=== PATIENT | female | born 1945 | race Caucasian/White ===

== ENCOUNTER 2017-05-01 21:39 | Inpatient (IN) | payer OTHER ==
[~2017-05-01] VITALS: Ht 177.8 cm; Wt 64.0 kg
--- NOTE | 2017-05-01 22:37 | RADRPT ---
PROCEDURE: XR Wrist and Scaphoid. CLINICAL INDICATION: 71 years of age, female. Fall. Pain.. TECHNIQUE: Four views of the left wrist and scaphoid. COMPARISON: None available. FINDINGS: There is a mildly impacted acute fracture of the distal radius that involves the distal radioulnar j oint but does not involve the radiocarpal joint. There is minimal angulation apex-anterior with neut ral alignment of the distal radial articular surface. Normal alignment. Neutral ulnar variance. Bones are osteopenic. Joint spaces are preserved. There is a subchondral cyst in the lunate that likely represents a geode or intraosseous ganglion cyst. There is soft tissue swelling at the wrist. IMPRESSION: 1. Acute fracture of the distal radius that involves the distal radioulnar joint but does not invol ve the radiocarpal joint with mild impaction and minimal angulation. 2. Osteopenia. 3. Subchondral cyst in the lunate likely represents a geode or intraosseous ganglion cyst. RPTAT: HCTS Physician Radha Date Time Electronically viewed and signed by Physician Radha on 05/01/2017 22:36 /
[2017-05-01] MEDS ORDERED: LEVO88TA3 PO (22:47)
[2017-05-01] MEDS ORDERED: IBUP200C PO (22:47)
[2017-05-01] MEDS ORDERED: FLUO20CA22 PO (22:47)
[2017-05-01] MEDS ORDERED: ESOM20CA PO (22:47)
[2017-05-01] MEDS ORDERED: GEMF600T60 PO (22:47)
[2017-05-01] MEDS ORDERED: ASPI-664 PO (22:47)
[2017-05-01] MEDS ORDERED: LORA-444 PO (22:47)
--- NOTE | 2017-05-01 23:21 | RADRPT ---
PROCEDURE: XR Hip. CLINICAL INDICATION: Status post fall with left hip pain TECHNIQUE: AP and frog lateral views of the left hip were performed. COMPARISON: None. FINDINGS: Abnormal jagged lucency coursing obliquely through the intertrochanteric region is present consisten t with an acute fracture. No displacement of the fracture fragments is demonstrated. The femoral hea d is normal in contour and the joint space preserved. The soft tissues are unremarkable. . RPTAT:HJJR IMPRESSION: Acute, closed, nondisplaced extracapsular intertrochanteric left femoral fracture. Physician Jacklyn Date Time Electronically viewed and signed by Physician Jacklyn on 05/01/2017 23:20 /
--- NOTE | 2017-05-01 23:22 | RADRPT ---
PROCEDURE: XR Pelvis. CLINICAL INDICATION: Trauma right status post fall TECHNIQUE: Single AP view of the pelvis. COMPARISON: Left hip series 05/01/2017 FINDINGS: A nondisplaced intertrochanteric fracture of the left femur is better visualized on the dedicated hi p images. There is no evidence of acute pelvic bone fracture. There are no arthritic, neoplastic or inflammatory changes. The osseous mineralization is normal. The sacroiliac joints and pubic symphysis are normal. RPTAT:HJJR IMPRESSION: 1. No evidence of acute pelvic bone fracture. 2. For further information regarding the nondisplaced intertrochanteric fracture of the left hip, p lease refer to the separate report. Physician Jacklyn Date Time Electronically viewed and signed by Physician Jacklyn on 05/01/2017 23:21 JR/
--- NOTE | 2017-05-01 23:28 | RADRPT ---
PROCEDURE: XR Chest. CLINICAL INDICATION: Trauma TECHNIQUE: AP Portable chest. COMPARISON: No pertinent prior examinations were submitted for comparison. FINDINGS: The cardiomediastinal silhouette is normal. The lungs are clear. The osseous structures are unrema rkable. IMPRESSION: No acute findings. RPTAT: HIKT .Luigi Ly MD, MD Date Time Electronically viewed and signed by .Luigi Ly MD, MD on 05/01/2017 23:28 .T/
--- NOTE | 2017-05-01 23:38 | ERA ---
ER Documentation Chief Complaint Date/Time DATE: 05/01/17 TIME: 23:31 Chief Complaint left hip pain s/p triped on raised sidewalk, GLF. no LOC HPI This is a 71-year-old female with a past medical history of depression, anxiety , hypothyroidism, hyperlipidemia who is presenting after a mechanical fall. The patient tripped on uneven pavement and fell to her left into grasp. She fell on an outstretched hand and also fell and landed on her left hip. She was not ambulatory at the scene secondary to pain. She has no focal deficits. Her sensation is intact distal to the injuries. She is able to move her fingers without issue. She is able to move her ankle and toes without issue. She has normal pulses. Her extremities do not feel cold. The patient does not endorse any other injury. She did not hit her head. She denies headache or neck pain. She denies any back pain. She denies chest pain or trouble breathing. She denies abdominal pain. She is not incontinent of urine or stool. She has no saddle anesthesia. ROS All systems reviewed and are negative except as per history of present illness. Medications Home Meds Reported Medications Fluoxetine Hcl* (Fluoxetine Hcl*) 20 Mg Capsule, 20 MG PO DAILY, CAP 05/01/17 Esomeprazole Mag Trihydrate (Nexium) 20 Mg Capsule.dr, 20 MG PO BID, #30 CAP 05/01/17 Ibuprofen* (Ibuprofen*) 200 Mg Capsule, 200 MG PO Q6 for PAIN, CAP 05/01/17 Gemfibrozil* (Gemfibrozil*) 600 Mg Tablet, 600 MG PO BID, TAB 05/01/17 Levothyroxine Sodium* (Levothyroxine Sodium*) 88 Mcg Tablet, 88 MCG PO BEFORE BREAKFAST, #30 TAB 05/01/17 Lorazepam* (Ativan*) 2 Mg Tablet, 2 MG PO DAILY Y for ANXIETY, #30 TAB 05/01/17 Aspirin* (Aspirin* EC) 81 Mg Tablet.dr, 81 MG PO DAILY, TAB 05/01/17 Allergies Allergies: Coded Allergies: Penicillins (Verified Allergy, Unknown, 05/01/17) PMhx/Soc Hx Miscellaneous Medical Probl: Yes (Anxiety, depression) Hx Alcohol Use: No (Occasional) Hx Substance Use: No Hx Tobacco Use: No Smoking Status: Never smoker FmHx Family History: No diabetes Physical Exam Vitals Vital Signs Date Time Temp Pulse Resp B/P Pulse Ox O2 Delivery O2 Flow Rate FiO2 05/01/17 22:34 98.7 75 16 135/63 98 Room Air 05/01/17 21:46 98.0 78 20 133/64 97 Physical Exam Const: NAD, Well developed, Well nourished Head: Atraumatic Eyes: Normal Conjunctiva ENT: Normal External Ears, Nose and Mouth. Neck: Full range of motion. ~ No meningismus. Resp: Clear to auscultation bilaterally Cardio: Regular rate and rhythm, no murmurs Abd: Soft, non tender, non distended. Normal bowel sounds Skin: No petechiae or rashes Back: No midline or flank tenderness Ext: No cyanosis, or edema, limited ROM at left wrist and left hip 2/2 pain, normal pulses, no erythema, no induration, no edema Neur: Awake and alert, Normal sensation, Normal strength, normal coordination Psych: Normal Mood and Affect Result Diagram: 05/02/17705/02/177 Results 24 hrs Laboratory Tests Test 05/02/17 00:08 White Blood Count 10.110^3/ul Red Blood Count 3.7410^6/ul Hemoglobin 11.0g/dl Hematocrit 34.0% Mean Corpuscular Volume 90.9fl Mean Corpuscular Hemoglobin 29.4pg Mean Corpuscular Hemoglobin Concent 32.4g/dl Red Cell Distribution Width 14.1% Platelet Count 01832^3/UL Mean Platelet Volume 8.9fl Neutrophils % 78.2% Lymphocytes % 14.7% Monocytes % 5.8% Eosinophils % 0.6% Basophils % 0.3% Nucleated Red Blood Cells % 0.0/100WBC Neutrophils # 7.910^3/ul Lymphocytes # 1.510^3/ul Monocytes # 0.610^3/ul Eosinophils # 0.110^3/ul Basophils # 0.010^3/ul Nucleated Red Blood Cells # 0.010^3/ul Prothrombin Time 12.6Sec Prothrombin Time Ratio 1.0 INR International Normalized Ratio 0.94 Activated Partial Thromboplast Time 25.8Sec Sodium Level 143mmol/L Potassium Level 3.8mmol/L Chloride Level 108mmol/L Carbon Dioxide Level 28mmol/L Anion Gap 11 Blood Urea Nitrogen 16mg/dl Creatinine 0.66mg/dl Glucose Level 105mg/dl Calcium Level 9.8mg/dl Current Medications Medications (Trade) Dose Ordered Sig/Boris Route PRN Reason Start Time Stop Time Status Last Admin Dose Admin Ondansetron HCl (Zofran Inj) 4 mg BRIDGE ORDER PRN IV NAUSEA AND/OR VOMITING 05/02/17 00:00 05/02/17 23:59 Acetaminophen (Tylenol Tab) 650 mg ER BRIDGE PRN PO MILD PAIN/FEVER 05/02/17 00:00 05/02/17 23:59 Procedures/MDM MDM Patient's presentation warrants further investigation. She presents after mechanical fall. I do not have any suspicion of a syncopal event given her history. I am concerned of fractures to the left wrist and left hip. X-ray imaging will be obtained. A CT of the left hip may be warranted for surgical evaluation if there is a fracture. Preop blood work may be warranted. LABS The patient's blood work was obtained and reviewed. The patient seemed shows no leukocytosis or left shift. The patient is afebrile, and I do not suspect a systemic infection. The patient is mild anemic today, but this does not require immediate treatment. I do not suspect hemorrhage as the injury sites. The patient's platelet count is unremarkable. The patient's BMP shows no signs of metabolic or electrolyte abnormality. The patient has normal renal function testing. INR is unremarkable. Type & screen was also sent off. EKG EKG read by me: Rate/Rhythm: Regular rate and rhythm at a rate of 67 Intervals: Normal Paradis: Normal Impression: No evidence of ischemia or arrhythmia IMAGING CT L HIP IMPRESSION: 1. Confirmation of the acute, closed, nondisplaced obliquely oriented extracapsular intertrochanteric fracture of the left femur seen on the earlier x -ray. 2. No evidence of distraction of the fracture fragments. 3. The soft tissues are unremarkable without evidence of hematoma. Electronically viewed and signed by Physician Jacklyn on 05/01/2017 23:41 TREATMENT/DISPOSITION The patient has a left wrist fracture. This will be splinted in the emergency department. It does not require reduction. A volar splint was placed under my direct supervision and the patient was neurovascularly intact after application. The patient also has a left extra-articular intertrochanteric fracture. Orthopedics was consulted and they felt that the patient will likely require surgical intervention. Preop testing was completed as described above. The patient will be admitted to the panel service as directed by their insurance. Dr. Cotto accepted the patient. Departure Diagnosis: Primary Impression: Fall Qualified Code: W19.XXXA - Fall, initial encounter Additional Impressions: Closed intertrochanteric fracture of left femur Qualified Code: S72.145A - Closed nondisplaced intertrochanteric fracture of left femur, initial encounter Fracture of left distal radius Qualified Code: S52.552A - Other closed extra-articular fracture of distal end of left radius, initial encounter Condition: Stable SHEN GARCIA MD May 01, 2017 23:38
--- NOTE | 2017-05-01 23:41 | RADRPT ---
PROCEDURE: CT of the lower extremity without contrast CLINICAL INDICATION: Fall. Left hip pain. TECHNIQUE: CT of the left lower extremity is performed from the mid iliac bone through the mid fem ur at 2.5 mm sections without intravenous contrast media. Coronal and sagittal reformatted images a re submitted. One or more of the following dose reduction techniques were used: Automated exposure c ontrol, adjustment of the mA and/or kV according to patient size, use of iterative reconstruction te chnique. CTDI = 18.34 mGy; DLP = 582.43 mGy-cm COMPARISON: X-ray 05/01/2017 FINDINGS: Osseous structures: The visualized left arpan pelvis is unremarkable. In particular the acetabulum i s normal. Corresponding to the x-ray abnormality is a jagged hairline lucency coursing obliquely thr ough the intertrochanteric region consistent with an acute, closed, nondisplaced fracture. There is no separate lesser trochanter fracture. The femoral neck and head are intact. Soft tissues: No soft tissue hematoma or joint effusion is present. The musculature is within rosa l limits. The visualized pelvis demonstrates diverticular disease of the colon and findings of prior hysterectomy. RPTAT:HJJR IMPRESSION: 1. Confirmation of the acute, closed, nondisplaced obliquely oriented extracapsular intertrochanteri c fracture of the left femur seen on the earlier x-ray. 2. No evidence of distraction of the fracture fragments. 3. The soft tissues are unremarkable without evidence of hematoma. Physician Jacklyn Date Time Electronically viewed and signed by Physician Jacklyn on 05/01/2017 23:41 /
[2017-05-02 00:22] LABS: BASOPHILS % 0.3 % (0.0-2.0); EOSINOPHILS # 0.1 10^3/ul (0.0-0.5); EOSINOPHILS % 0.6 % (0.0-7.0); LYMPHOCYTES # 1.5 10^3/ul (0.8-2.9); LYMPHOCYTES % 14.7 % (15.0-51.0); MEAN CORPUSCULAR HEMOGLOBIN 29.4 pg (29.0-33.0); MEAN CORPUSCULAR HGB CONC 32.4 g/dl (32.0-37.0); MEAN CORPUSCULAR VOLUME 90.9 fl (82.0-101.0); MEAN PLATELET VOLUME 8.9 fl (7.4-10.4); MONOCYTE # 0.6 10^3/ul (0.3-0.9); MONOCYTES % 5.8 % (0.0-11.0); NEUTROPHIL # 7.9 10^3/ul (1.6-7.5); NEUTROPHILS % 78.2 % (39.0-77.0); PLATELET COUNT 237 10^3/UL (140-415); RED BLOOD COUNT 3.74 10^6/ul (4.20-5.40); RED CELL DISTRIBUTION WIDTH 14.1 % (11.5-14.5); WHITE BLOOD COUNT 10.1 10^3/ul (4.8-10.8)
[2017-05-02 00:38] LABS: INR 0.94; PROTIME 12.6 Sec (12.2-14.2)
[2017-05-02 00:39] LABS: PARTIAL THROMBOPLASTIN TIME 25.8 Sec (25.0-35.0)
[2017-05-02 00:43] LABS: CALCIUM 9.8 mg/dl (8.4-10.2); CREATININE 0.66 mg/dl (0.44-1.00); POTASSIUM 3.8 mmol/L (3.5-5.1)
[2017-05-02] MEDS ORDERED: SOD CHLORIDE 0.9% 1,000 ML IV SCH (01:41)
[2017-05-02] MEDS ORDERED: ACETAMINOPHEN 325 MG TAB PO PRN ×2 (02:00)
[2017-05-02] MEDS ORDERED: NACL 0.9% 3 ML SYG IV SCH (02:00)
[2017-05-02] MEDS ORDERED: DOCUSATE SODIUM 100 MG CAP PO PRN (02:00)
[2017-05-02] MEDS ORDERED: ONDANSETRON 4 MG INJ IV PRN ×2 (02:00)
[2017-05-02] MEDS ORDERED: BISACODYL (EC) 5 MG TAB PO PRN (02:00)
[2017-05-02] MEDS ORDERED: morphine 2 MG INJ IV ONE ×2 (04:00→12:00)
[2017-05-02 05:04] VITALS: TEMP 98.6
[2017-05-02 05:46] VITALS: Ht 177.8 cm; Wt 64.0 kg
[2017-05-02 05:47] VITALS: BP 135/63; PULSE 77; RESP 20
[2017-05-02] MEDS ORDERED: PANTOPRAZOLE 40 MG INJ IV SCH (06:00)
[2017-05-02] MEDS ORDERED: LORAZEPAM 1 MG TAB PO PRN (06:30)
--- NOTE | 2017-05-02 07:02 | HP ---
Date/Time of Note Date/Time of Note DATE: 05/02/17 TIME: 06:53 Assessment/Plan VTE Prophylaxis VTE Prophylaxis Intervention: SCD's Lines/Catheters IV Catheter Type (from Nrsg): Peripheral IV Urinary Cath still in place: Yes Reason Cath still needed: other (indicate) (immobilization secondary to fx) Assessment/Plan Chief Complaint/Hosp Course This is a 71-year-old female being admitted to the [facility] floor for: #1 Left femur fracture: CAT scan shows acute, closed, nondisplaced obliquely oriented extracapsular intertrochanteric fracture of the left femur. The current time will provide pain control but IV narcotics. Keep the patient immobilized at this time. SCDs. Keep the patient n.p.o. IV fluid hydration. Orthopedic surgery was consulted via the ED and will see the patient's morning. will obtain an ekg for the AM. #2 left wrist fracture: Acute fracture of the distal radius that involves the distal radioulnar joint but does not involve the radiocarpal joint with mild impaction and minimal angulation. Left upper extremity is in a cast/splint at this time. Keep it immobilized at this time. Orthopedic surgery consulted via the ED. IV narcotic for pain control. #3 hypothyroidism: Continue Synthroid dose will check TSH level #4 hypertension: Continue to monitor and resume home medications as indicated. #5 anxiety: Patient is on high-dose of lorazepam daily consisting of 2 mg in the morning 2 mg in the afternoon and 4 mg at night. Will continue to Amy patient's current dosage as holding this may result in withdrawal symptoms/ seizures. Resume fluoxetine #6 hyperlipidemia: We will resume cholesterol medication as indicated #7 DVT GI prophylaxis: SCDs, acid al Further treatment strategy will be implemented as per the clinical course Problems: HPI/ROS Admit Date/Time Admit Date/Time May 02, 2017 at 00:00 Hx of Present Illness cc: mechanical fall This is a 71-year-old female with a past medical history of depression, anxiety , hypothyroidism, hyperlipidemia who is presenting after a mechanical fall. The patient tripped on uneven pavement and fell to her left into grasp. She fell on an outstretched hand and also fell and landed on her left hip. She was not ambulatory at the scene secondary to pain. She has no focal deficits. Her sensation is intact distal to the injuries. She is able to move her fingers without issue. She is able to move her ankle and toes without issue. She has normal pulses. Her extremities do not feel cold. The patient does not endorse any other injury. She did not hit her head. She denies headache or neck pain. She denies any back pain. She denies chest pain or trouble breathing. She denies abdominal pain. She is not incontinent of urine or stool. She has no saddle anesthesia. Of note patient reports she takes total of 8mg of lorazepam daily secondary to her high anxiety as she was a a victim of the 04/21 attacks. allergies: pcn ROS Const: As per HPI Eyes : No pain discharge or redness or change in visual acuity ENT: No pain, sore throat, congestion, congestion, dysphagia or discharge Respiratory: No shortness of breath, cough, sputum, wheezing, or pleuritic pain Cardiovascular: No chest pain, palpitation, PND, or edema GI : no change in appetite, abdominal pain, nausea, vomiting, diarrhea, constipation, or change in the color his stool Genitourinary: No dysuria, hematuria, flank pain , discharge or CVA tenderness Musculoskeletal: As per HPI Skin: No rash, bruising or hives Neuro: No headache, dizziness, syncope, seizure, focal weakness Endocrine: No polyuria, polydipsia, temperature intolerance Psych: No hallucination, depression, anxiety or suicidal ideation PMH/Family/Social Past Medical History Hypertension, hyperlipidemia, hypothyroidism, anxiety Past Surgical History Left shoulder surgery, abdominal surgery Family History Significant Family History: cancer Social History Alcohol Use: none Smoking Status: Never smoker Drug Use: none Exam/Review of Systems Vital Signs Vitals Vital Signs Date Time Temp Pulse Resp B/P Pulse Ox O2 Delivery O2 Flow Rate FiO2 05/02/17 05:47 98.1 77 20 135/63 96 Room Air Exam Exam General: Patient is lying in bed in mild distress from pain HEENT: Atraumatic, normocephalic. The pupils are equal, round and reactive. Extraocular motor are intact Neck: Supple with full range of motion. No rigidity or meningismus Chest: Nontender Lungs: Clear to auscultation bilaterally no crackles rales or wheezing Heart: Normal S1-S2, Regular rhythm and rate. No murmur, S3, or S4 Abdomen: Soft , nontender, nondistended , bowel sounds are present. No guarding no rebound tenderness , No masses or organomegaly. No costovertebral temporal angle mass Extremities: Left upper extremity in cast/wrap, left lower extremity pain to palpation around the left femur. Range of motion not assessed secondary to patient's pain Neurologic: Normal mental status, speech normal, cranial nerves II through XII are intact, motor and sensory are intact, no focal weakness Additional Comments PROCEDURE: CT of the lower extremity without contrast CLINICAL INDICATION: Fall. Left hip pain. TECHNIQUE: CT of the left lower extremity is performed from the mid iliac bone through the mid femur at 2.5 mm sections without intravenous contrast media. Coronal and sagittal reformatted images are submitted. One or more of the following dose reduction techniques were used: Automated exposure control, adjustment of the mA and/or kV according to patient size, use of iterative reconstruction technique. CTDI = 18.34 mGy; DLP = 582.43 mGy-cm COMPARISON: X-ray 05/01/2017 FINDINGS: Osseous structures: The visualized left arpan pelvis is unremarkable. In particular the acetabulum is normal. Corresponding to the x-ray abnormality is a jagged hairline lucency coursing obliquely through the intertrochanteric region consistent with an acute, closed, nondisplaced fracture. There is no separate lesser trochanter fracture. The femoral neck and head are intact. Soft tissues: No soft tissue hematoma or joint effusion is present. The musculature is within normal limits. The visualized pelvis demonstrates diverticular disease of the colon and findings of prior hysterectomy. RPTAT:HJJR IMPRESSION: 1. Confirmation of the acute, closed, nondisplaced obliquely oriented extracapsular intertrochanteric fracture of the left femur seen on the earlier x -ray. 2. No evidence of distraction of the fracture fragments. 3. The soft tissues are unremarkable without evidence of hematoma. Physician Jacklyn Date Time Electronically viewed and signed by Physician Jacklyn on 05/01/2017 23:41 JR/ CC: SHEN GARCIA MD PROCEDURE: XR Wrist and Scaphoid. CLINICAL INDICATION: 71 years of age, female. Fall. Pain.. TECHNIQUE: Four views of the left wrist and scaphoid. COMPARISON: None available. FINDINGS: There is a mildly impacted acute fracture of the distal radius that involves the distal radioulnar joint but does not involve the radiocarpal joint. There is minimal angulation apex-anterior with neutral alignment of the distal radial articular surface. Normal alignment. Neutral ulnar variance. Bones are osteopenic. Joint spaces are preserved. There is a subchondral cyst in the lunate that likely represents a geode or intraosseous ganglion cyst. There is soft tissue swelling at the wrist. IMPRESSION: 1. Acute fracture of the distal radius that involves the distal radioulnar joint but does not involve the radiocarpal joint with mild impaction and minimal angulation. 2. Osteopenia. 3. Subchondral cyst in the lunate likely represents a geode or intraosseous ganglion cyst. RPTAT: HCTS Alyse Solano Physician Date Time Electronically viewed and signed by Physician Radha on 05/01/2017 22: 36 CS/ CC: SHEN GARCIA MD PROCEDURE: XR Hip. CLINICAL INDICATION: Status post fall with left hip pain TECHNIQUE: AP and frog lateral views of the left hip were performed. COMPARISON: None. FINDINGS: Abnormal jagged lucency coursing obliquely through the intertrochanteric region is present consistent with an acute fracture. No displacement of the fracture fragments is demonstrated. The femoral head is normal in contour and the joint space preserved. The soft tissues are unremarkable. . RPTAT:HJJR IMPRESSION: Acute, closed, nondisplaced extracapsular intertrochanteric left femoral fracture. Physician Jacklyn Date Time Electronically viewed and signed by Physician Jacklyn on 05/01/2017 23:20 JR/ CC: SHEN GARCIA MD PROCEDURE: XR Pelvis. CLINICAL INDICATION: Trauma right status post fall TECHNIQUE: Single AP view of the pelvis. COMPARISON: Left hip series 05/01/2017 FINDINGS: A nondisplaced intertrochanteric fracture of the left femur is better visualized on the dedicated hip images. There is no evidence of acute pelvic bone fracture. There are no arthritic, neoplastic or inflammatory changes. The osseous mineralization is normal. The sacroiliac joints and pubic symphysis are normal. RPTAT:HJJR IMPRESSION: 1. No evidence of acute pelvic bone fracture. 2. For further information regarding the nondisplaced intertrochanteric fracture of the left hip, please refer to the separate report. Physician Jacklyn Date Time Electronically viewed and signed by Physician Jacklyn on 05/01/2017 23:21 JR/ CC: SHEN GARCIA MD PROCEDURE: XR Chest. CLINICAL INDICATION: Trauma TECHNIQUE: AP Portable chest. COMPARISON: No pertinent prior examinations were submitted for comparison. FINDINGS: The cardiomediastinal silhouette is normal. The lungs are clear. The osseous structures are unremarkable. IMPRESSION: No acute findings. RPTAT: HIKT .Luigi Ly MD, MD Date Time Electronically viewed and signed by .Luigi Ly MD, MD on 05/01/2017 23:28 .T/ CC: SHEN GARCIA MD Labs Result Diagram: 05/02/17705/02/177 Medications Medications Current Medications Sodium Chloride (NS) 1,000 ml @ 70 mls/hr [id number] IV Last administered on 05/02t 01:41; Admin Dose 70 MLS/HR; Start 05/02/17 at 01:41 Ondansetron HCl (Zofran Inj) 4 mg Q6H PRN IV NAUSEA AND/OR VOMITING; Start at 02:00 Acetaminophen (Tylenol Tab) 650 mg Q6H PRN PO PAIN LEVEL 1-3 OR FEVER; Start at 02:00 Docusate Sodium (Colace) 100 mg Q12H PRN PO CONSTIPATION; Start 05/02/17 at 02: 00 Bisacodyl (Dulcolax) 5 mg DAILY PRN PO CONSTIPATION; Start 05/02/17 at 02:00 Pantoprazole (Protonix Iv) 40 mg DAILY@06 IV ; Start 05/02/17 at 06:00 Fluoxetine HCl (Prozac) 20 mg DAILY PO ; Start 05/02/17 at 09:00 Lorazepam (Ativan) 2 mg DAILY PRN PO ANXIETY; Start 05/02/17 at 06:30 CAMRON HAM May 02, 2017 07:02
[2017-05-02 08:30] VITALS: BP 94/56; RESP 18
[2017-05-02] MEDS: LORAZEPAM 1 MG TAB PO SCH ×3 (10:04→21:05)
[2017-05-02] MEDS: FLUOXETINE 20 MG CAP PO SCH (10:05)
[2017-05-02] MEDS: LEVOTHYROXINE 88 MCG TAB PO SCH (10:05)
[2017-05-02] MEDS: morphine 4 MG/ML VIAL IV PRN ×2 (10:30→19:43)
--- NOTE | 2017-05-02 13:54 | CONS ---
DATE OF ADMISSION: 05/02/2017 DATE OF CONSULTATION: 05/02/2017 CHIEF COMPLAINT: Left hip pain, left wrist pain. HISTORY OF PRESENT ILLNESS: This is a 71-year-old female, who fell while ambulating, complaining of left wrist and left hip pain. The pain is in the left groin. She also fell onto an outstretched hand. She was unable to ambulate following the fall. She ambulates without use of assistive devices. She denies any chest pain, shortness of breath, or palpitations. She denies any loss of consciousness. She has no other complaints. PAST MEDICAL HISTORY: Depression, anxiety, hypothyroidism, dyslipidemia. MEDICATION: 1. Fluoxetine 20 mg. 2. Gemfibrozil 600 mg. 3. Levothyroxine 88 mcg. 4. Ativan, 2 mg. PAST SURGICAL HISTORY: Denies any previous surgeries. SOCIAL HISTORY: Denies tobacco, alcohol, or drug use. FAMILY HISTORY: None. ALLERGIES: PENICILLIN. REVIEW OF SYSTEMS: Negative except per HPI. PHYSICAL EXAMINATION: VITAL SIGNS: 98.7, 135/63, pulse 75, respiratory rate of 16. GENERAL: No acute distress. Alert and oriented x3. EXTREMITIES: Left wrist splint is intact. 5/5 function of the median, ulnar, and radial nerves. Capillary refills less than 2 seconds. Left hip: Pain with axial loading. No open wounds. No deformities. 5/5 function of hamstrings and quadriceps, tibialis anterior, gastroc soleus, with intact sensation all dermatomes of the left lower extremity and palpable pulses. X-RAYS: Left hip: X-rays of the left hip demonstrate a nondisplaced oblique fracture of the left intertrochanteric region. No other fractures are seen. Left wrist: There is a questionable nondisplaced fracture of the left distal radius. CT left lower extremity: Nondisplaced oblique fracture of the intertrochanteric left femur. IMPRESSION: 71-year-old female who had a mechanical fall, resulting in a left closed, oblique, nondisplaced intertrochanteric femur fracture, and questionable left distal radius fracture. PLAN: Patient can remain in a left wrist splint. She will be nonweightbearing on the left lower extremity. She will be NPO after midnight. The plan is to proceed with a left hip open reduction internal fixation on 05/03/2017. The risks of surgery which include, but are not limited to, infection, deep venous thrombosis, pulmonary embolism, nonunion and malunion, heart attack, stroke, risks of anesthesia, need for blood transfusion, as well as were discussed with the patient. I also informed her of one year mortality of up to 40 percent. Informed consent was obtained. All questions were answered to her satisfaction. Dictated By: Ashley Baer MD /[email or web address] /Document#: [id number]
--- NOTE | 2017-05-02 14:23 | RADRPT ---
PROCEDURE: CT of the left upper extremity CLINICAL INDICATION: Left upper extremity pain, fracture TECHNIQUE: Axial images through the left upper extremity without IV contrast. Coronal and sagitt al reformats. Images were interpreted at an independent PACS workstation. CTDI 28.01 mGy DLP 45 8.64 mGy-cm One or more of the following dose reduction techniques were used: Automated exposure control Adjustment of the mA and / or kV according to patient size Use of iterative reconstruction technique. COMPARISON: Radiographs of the left wrist dated May 01, 2017 FINDINGS: As seen on the previous plain films there is an acute slightly impacted minimally dorsally angulated distal radius fracture (coronal 44 and sagittal 133). There is no involvement of the distal radioul aga joint. The fracture line extends to the distal radioulnar joint. No additional fracture is ident ified. The bones are osteopenic. 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 There is mild soft tissue swelling about the wrist. The patients left proximal femur fracture is noted at the edge of the field of view, only assessed. IMPRESSION: 1. Acute minimally impacted and dorsally angulated distal radius fracture extending to the distal ra dioulnar joint but without involvement of the radiocarpal articular surface. 2. 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 RPTAT: UU .Fredy Scales MD, Date Time Electronically viewed and signed by .Fredy Scales MD, on 05/02/2017 14:22 .K/
[2017-05-02 15:00] VITALS: BP 117/57; RESP 18
--- NOTE | 2017-05-02 15:38 | PN ---
Date/Time of Note Date/Time of Note DATE: 05/02/17 TIME: 15:36 Assessment/Plan VTE Prophylaxis VTE Prophylaxis Intervention: LMWH Lines/Catheters IV Catheter Type (from Nrsg): Peripheral IV Urinary Cath still in place: Yes Reason Cath still needed: urinary retention Assessment/Plan Chief Complaint/Hosp Course 71 yo female with MDD, and generalized anxiety disorder who presents after mechanical fall with hip fracture Hip fracture: - Plan for ORIF tomorrow per Dr Henderson - Pain control - Lovenox for DVT ppx today, hold in AM BLAISE: - Continue home ativan dosing MDD: - Continue home SSRI dispo likley to rehab following surgery Problems: Subjective 24 Hr Interval Summary Free Text/Dictation Long discussion w patient mostly about emotional issues regarding deaths in her family, involvement in 04/21 in [facility] Pain in leg is still bothersome Plan for OR tomorrow Exam/Review of Systems Vital Signs Vitals Vital Signs Date Time Temp Pulse Resp B/P Pulse Ox O2 Delivery O2 Flow Rate FiO2 05/02/17 15:00 97.9 79 18 117/57 99 05/02/17 05:47 Room Air Intake and Output 05/01/17 05/01/17 05/02/17 15:00 23:00 07:00 Intake Total 200 ml Balance 200 ml Exam Constitutional: alert, oriented, well developed Psych: nl mood/affect, no complaints Head: atraumatic, normocephalic Eyes: EOMI, PERRL, nl conjunctiva, nl lids, nl sclera ENMT: nl external ears & nose, nl lips & teeth, nl nasal mucosa & septum Neck: non-tender, supple Respiratory: clear to auscultation, normal air movement Cardiovascular: nl pulses, regular rate and rhythm Gastrointestinal: nl liver, spleen, non-tender, soft Musculoskeletal: nl extremities to inspection, nl gait and stance Extremities: normal pulses Neurological: ARTIST [employer]NEQUIN COLORING II-XII intact, nl mental status, nl speech, nl strength Skin: nl turgor, No rash or lesions Lymph: nl lymph nodes Results Result Diagram: 05/02/17 0008 05/02/17 0008 Results 24 hrs Laboratory Tests Test 05/02/17 00:08 White Blood Count 10.1 Red Blood Count 3.74 L Hemoglobin 11.0 L Hematocrit 34.0 L Mean Corpuscular Volume 90.9 Mean Corpuscular Hemoglobin 29.4 Mean Corpuscular Hemoglobin Concent 32.4 Red Cell Distribution Width 14.1 Platelet Count 237 Mean Platelet Volume 8.9 Neutrophils % 78.2 H Lymphocytes % 14.7 L Monocytes % 5.8 Eosinophils % 0.6 Basophils % 0.3 Nucleated Red Blood Cells % 0.0 Neutrophils # 7.9 H Lymphocytes # 1.5 Monocytes # 0.6 Eosinophils # 0.1 Basophils # 0.0 Nucleated Red Blood Cells # 0.0 Prothrombin Time 12.6 Prothrombin Time Ratio 1.0 INR International Normalized Ratio 0.94 Activated Partial Thromboplast Time 25.8 Sodium Level 143 Potassium Level 3.8 Chloride Level 108 Carbon Dioxide Level 28 Anion Gap 11 Blood Urea Nitrogen 16 Creatinine 0.66 Glucose Level 105 Calcium Level 9.8 Medications Medications Current Medications Ondansetron HCl (Zofran Inj) 4 mg Q6H PRN IV NAUSEA AND/OR VOMITING; Start at 02:00 Acetaminophen (Tylenol Tab) 650 mg Q6H PRN PO PAIN LEVEL 1-3 OR FEVER; Start at 02:00 Docusate Sodium (Colace) 100 mg Q12H PRN PO CONSTIPATION; Start 05/02/17 at 02: 00 Bisacodyl (Dulcolax) 5 mg DAILY PRN PO CONSTIPATION; Start 05/02/17 at 02:00 Pantoprazole (Protonix Iv) 40 mg DAILY@06 IV Last administered on 05/02/17 08: 11; Admin Dose 40 MG; Start 05/02/17 at 06:00 Fluoxetine HCl (Prozac) 20 mg DAILY PO Last administered on 05/02/17 10:05; Admin Dose 20 MG; Start 05/02/17 at 09:00 Lorazepam (Ativan) 2 mg DAILY PRN PO ANXIETY; Start 05/02/17 at 06:30 Morphine Sulfate (morphine) 4 mg Q4H PRN IV SEVERE PAIN LEVEL 7-10 Last administered on 05/02/17 10:30; Admin Dose 4 MG; Start 05/02/17 at 07:00 Lorazepam (Ativan) 2 mg AM PO Last administered on 05/02/17 10:04; Admin Dose 2 MG; Start 05/02/17 at 09:00 Lorazepam (Ativan) 4 mg HS PO ; Start 05/02/17 at 21:00 CAL FOSTER MD May 02, 2017 15:38
[2017-05-02] MEDS ORDERED: ENOXAPARIN 40 MG/0.4 ML SYG SC ONE (16:00)
--- NOTE | 2017-05-02 16:38 | RADRPT ---
Vent Rate: 64 bpm RR Interval: 0 msec DC Interval: 138 msec QRS Duration: 80 msec QT Interval: 420 msec QTC Interval: 433 msec P-R-T [place]: 63 - 37 - 57 degrees Normal sinus rhythm Normal ECG Electronically Signed By: Dale Wang [id number]
[2017-05-02] MEDS: FAMOTIDINE 20 MG INJ IV SCH (21:06)
[2017-05-02] MEDS: SOD CHLORIDE 0.9% 1,000 ML IV SCH (21:06)
[2017-05-02 21:41] VITALS: BP 127/61; RESP 22
[2017-05-03] VITALS (22 sets, daily range): BP systolic 104–136; BP diastolic 50–77; PULSE 82–100; RESP 15–22
[2017-05-03] MEDS: LEVOTHYROXINE 88 MCG TAB PO SCH (05:33)
[2017-05-03 05:38] LABS: BASOPHILS % 0.3 % (0.0-2.0); EOSINOPHILS # 0.2 10^3/ul (0.0-0.5); EOSINOPHILS % 2.1 % (0.0-7.0); HEMOGLOBIN 9.8 g/dl (12.0-16.0); LYMPHOCYTES # 1.8 10^3/ul (0.8-2.9); LYMPHOCYTES % 24.2 % (15.0-51.0); MEAN CORPUSCULAR HEMOGLOBIN 29.7 pg (29.0-33.0); MEAN CORPUSCULAR HGB CONC 31.6 g/dl (32.0-37.0); MEAN CORPUSCULAR VOLUME 93.9 fl (82.0-101.0); MEAN PLATELET VOLUME 9.5 fl (7.4-10.4); MONOCYTE # 0.4 10^3/ul (0.3-0.9); MONOCYTES % 5.9 % (0.0-11.0); NEUTROPHILS % 67.4 % (39.0-77.0); PLATELET COUNT 193 10^3/UL (140-415); WHITE BLOOD COUNT 7.5 10^3/ul (4.8-10.8)
[2017-05-03] MEDS ORDERED: ROCURONIUM 50 MG INJ ONE (07:00)
[2017-05-03 07:04] LABS: ALBUMIN 3.4 g/dl (3.3-4.9); ALBUMIN/GLOBULIN RATIO 1.3; CALCIUM 8.6 mg/dl (8.4-10.2); CREATININE 0.68 mg/dl (0.44-1.00); MAGNESIUM 1.6 mg/dl (1.7-2.5); PHOSPHORUS 3.5 mg/dl (2.5-4.9); POTASSIUM 4.4 mmol/L (3.5-5.1)
[2017-05-03] MEDS ORDERED: FENTAnyl 50 MCG/ML VIAL ONE (07:55)
[2017-05-03] MEDS ORDERED: POLYMYXIN/BACITRACIN 1L IRRIG IRR ONE (08:31)
[2017-05-03] MEDS: FLUOXETINE 20 MG CAP PO SCH (09:00)
[2017-05-03] MEDS: FAMOTIDINE 20 MG INJ IV SCH ×2 (09:00→22:34)
[2017-05-03] MEDS: LORAZEPAM 1 MG TAB PO SCH ×3 (09:00→22:34)
[2017-05-03] MEDS ORDERED: LIDOCAINE 2% (SDV) 5 ML INJ ONE (09:03)
[2017-05-03] MEDS ORDERED: PROPOFOL 20 ML ONE (09:03)
[2017-05-03] MEDS ORDERED: CLINDAMYCIN 600 MG/D5W (PMX) 50 ML IVPB ONE (09:03)
[2017-05-03] MEDS ORDERED: SUCCINYLCHOLINE CHLORIDE 100 MG/5 ML SYG IV ONE (09:03)
[2017-05-03] MEDS ORDERED: SUGAMMADEX SODIUM 200 MG/2 ML VIAL IV ONE (09:08)
--- NOTE | 2017-05-03 09:16 | SIPON ---
Date/Time of Note Date/Time of Note DATE: 05/03/17 TIME: 09:14 Operative Report Preoperative Diagnosis 1. Left femur IT Fracture 2. Left Distal Radius Fracture Postoperative Diagnosis Same Operation/Procedure Performed 1. Left hip intramedullary nail 2. Interpretation of left hip x-ray 3. Left distal radius closed reduction, application of splint Surgeon Oscar Baer MD fish hatchery assistant brennon Anesthesia: general Estimated blood loss: 10 - 50 ml's Transfusion Required none Specimen none Grafts/Implants Slingr Gamma Nail [id number] mm, 100mm lag screw, 37.5 distal locking screw Complications none DANIELLE BAER MD May 03, 2017 09:16
[2017-05-03] MEDS ORDERED: METOCLOPRAMIDE 10 MG INJ IV PRN (09:30)
[2017-05-03] MEDS ORDERED: ONDANSETRON 4 MG INJ IV PRN ×2 (09:30)
[2017-05-03] MEDS ORDERED: DIPHENHYDRAMINE 50 MG INJ IV PRN (09:30)
[2017-05-03] MEDS ORDERED: ALBUTEROL 0.083% (NEB) 2.5 MG/3 ML AMP HHN PRN (09:30)
[2017-05-03] MEDS ORDERED: NALOXONE (0.4 MG/ML) INJ IV PRN (09:30)
[2017-05-03] MEDS ORDERED: HYDROmorphONE (0.2 MG/ML) 10ML SYG IV PRN ×2 (09:30)
[2017-05-03] MEDS ORDERED: MEPERIDINE 25 MG INJ IV PRN (09:30)
[2017-05-03] MEDS ORDERED: CEFAZOLIN 1 GM/50 ML (PMX) 50 ML IVPB SCH ×2 (09:30→13:30)
[2017-05-03] MEDS ORDERED: FENTAnyl 50 MCG/ML VIAL IV PRN (09:30)
--- NOTE | 2017-05-03 09:46 | OPR ---
DATE OF OPERATION: 05/03/2017 SURGEON: Dr. Baer. PREOPERATIVE DIAGNOSES: 1. Left closed femur intertrochanteric fracture. 2. Left closed distal radius nondisplaced fracture. POSTOPERATIVE DIAGNOSES: 1. Left closed femur intertrochanteric fracture. 2. Left closed distal radius nondisplaced fracture. OPERATION PERFORMED: 1. Left hip intramedullary nailing. 2. Interpretation of left hip x-rays, 2 views. 3. Left distal radius closed reduction with application of splint. ANESTHESIOLOGIST: Dr. Valladares. ANESTHESIA: General. ESTIMATED BLOOD LOSS: 25 mL. COMPLICATIONS: None. SPECIMEN: None. DISPOSITION: To PACU in stable condition. IMPLANT USED: A [employer] Gamma nail, size 11 x 180 mm with a 100 mm lag screw, 37.5 mm distal locking screw. INDICATION FOR PROCEDURE: This is a 71-year-old female, who sustained a mechanical fall resulting in a left femur intertrochanteric nondisplaced fracture and left distal radius fracture. Risks, benefits, alternatives to surgical intervention were discussed with the patient and informed consent was obtained. The risks of surgery include, but are not limited to, infection, deep venous thrombosis, pulmonary embolism, damage to neurovascular structures, hardware failure, need for revision surgery, malunion, nonunion, risks associated with anesthesia and even . OPERATIVE PROCEDURE: Patient was met in the preoperative area. The correct operative site was confirmed and marked. She was then brought into the operating room. After induction general anesthesia, she was placed in the supine position on the Cutler table. After closed reduction, x-rays were taken, which demonstrated that the fracture was reduced. The left lower extremity was then prepped and draped in the usual sterile fashion. Before starting, a time-out was taken to identify the correct operative site and confirmed that preoperative antibiotics consisting of 1 g of IV Ancef was administered. At this point, a small incision was made proximal to the greater trochanter. The guidewire was placed on the tip of the greater trochanter in line with the femoral shaft and visualized with an x-ray of the hip, 2 views. The guidewire was then advanced. Next, the soft tissue protection sleeve was advanced over the guidewire and the opening reamer was then placed over the guidewire. At this point, the size 11 x 180 mm nail was then placed under direct visualization with the AP and lateral views of the left hip. Once the nail was deemed to be in appropriate position, a small incision was made for the lag screw. The guide was placed on the lateral cortex and a guidewire was placed in a center-center position of the femoral neck and head. It was measured to 100 mm. The reamer was then advanced over the guidewire and the appropriate size lag screw was then advanced under direct visualization. At this point, the guide for the distal locking screw was placed. A small stab incision was made over the distal static hole. The drill was then used to drill bicortically and measured to 37.5 mm. The appropriate size 37.5 mm screw was then placed and confirmed with x-rays of the left hip. Prior to waking the patient up, the previous splint was removed and a closed reduction maneuver with the application of a short- arm splint was applied. The patient was awakened, taken to the postoperative care unit in stable condition. There were no complications. POSTOPERATIVE CARE: The patient will be weightbearing as tolerated on the left lower extremity. She will receive postoperative antibiotics, as well as DVT prophylaxis with SCDs and aspirin 325 mg p.o. b.i.d. Upon passing physical therapy, she will be discharged home with followup within 2 weeks postoperatively. Dictated By: Ashley Baer MD /[email or web address] /Document#: [id number]
[2017-05-03] MEDS: FENTAnyl 50 MCG/ML VIAL IV PRN ×2 (09:48→09:58)
--- NOTE | 2017-05-03 10:25 | RADRPT ---
PROCEDURE: XR Hip. CLINICAL INDICATION: Postoperative examination TECHNIQUE: AP views of the left hip were performed. COMPARISON: 05/01/2017 FINDINGS: There is intramedullary juwan and dynamic screw fixation across a previous intertrochanteric left femo ral neck fracture. Hardware appears intact in appropriate position. There is overlying subcutaneous emphysema, soft tissue swelling, and skin marylin. . There are normal joints without evidence of arthritis or effusion. IMPRESSION: Left femoral neck open reduction internal fixation. Intact hardware and near anatomic alignment. RPTAT: QQ .Duong Carnes MD, MD Date Time Electronically viewed and signed by .Duong Carnes MD, on 05/03/2017 10:24 .T/
[2017-05-03] MEDS: morphine 4 MG/ML VIAL IV PRN ×4 (12:00→23:44)
--- NOTE | 2017-05-03 14:27 | PN ---
Date/Time of Note Date/Time of Note DATE: 05/03/17 TIME: 14:26 Assessment/Plan VTE Prophylaxis VTE Prophylaxis Intervention: LMWH Lines/Catheters IV Catheter Type (from Nrsg): Saline Lock Urinary Cath still in place: Yes Reason Cath still needed: urinary retention Assessment/Plan Chief Complaint/Hosp Course 71 yo female with MDD, and generalized anxiety disorder who presents after mechanical fall with hip fracture Hip fracture: - s/p OR per Dr Henderson - Pain control - Lovenox for DVT ppx today, hold in AM - PT/OT BLAISE: - Continue home ativan dosing MDD: - Continue home SSRI Dispo likely to rehab following surgery Problems: Subjective 24 Hr Interval Summary Free Text/Dictation Underwent intermedullary pin Seen post op, feeling well but does have pain in her leg Exam/Review of Systems Vital Signs Vitals Vital Signs Date Time Temp Pulse Resp B/P Pulse Ox O2 Delivery O2 Flow Rate FiO2 05/03/17 10:30 100 20 111/51 97 Nasal Cannula 2.0 05/03/17 09:37 98.0 Intake and Output 05/02/17 05/02/17 05/03/17 15:00 23:00 07:00 Intake Total 1100 ml 1040 ml Output Total 900 ml 700 ml Balance 200 ml 340 ml Exam Constitutional: alert, oriented, well developed Psych: nl mood/affect, no complaints Head: atraumatic, normocephalic Eyes: EOMI, PERRL, nl conjunctiva, nl lids, nl sclera ENMT: nl external ears & nose, nl lips & teeth, nl nasal mucosa & septum Neck: non-tender, supple Respiratory: clear to auscultation, normal air movement Cardiovascular: nl pulses, regular rate and rhythm Gastrointestinal: nl liver, spleen, non-tender, soft Musculoskeletal: nl extremities to inspection, nl gait and stance Extremities: normal pulses Neurological: FAMILY LAW MEDIATOR II-XII intact, nl mental status, nl speech, nl strength Skin: nl turgor, No rash or lesions Lymph: nl lymph nodes Results Result Diagram: 05/03/17 0445 05/03/17 0523 Results 24 hrs Laboratory Tests Test 05/03/17 04:45 05/03/17 05:23 White Blood Count 7.5 # Red Blood Count 3.30 L Hemoglobin 9.8 L Hematocrit 31.0 L Mean Corpuscular Volume 93.9 Mean Corpuscular Hemoglobin 29.7 Mean Corpuscular Hemoglobin Concent 31.6 L Red Cell Distribution Width 14.0 Platelet Count 193 Mean Platelet Volume 9.5 Neutrophils % 67.4 Lymphocytes % 24.2 Monocytes % 5.9 Eosinophils % 2.1 Basophils % 0.3 Nucleated Red Blood Cells % 0.0 Neutrophils # 5.0 Lymphocytes # 1.8 Monocytes # 0.4 Eosinophils # 0.2 Basophils # 0.0 Nucleated Red Blood Cells # 0.0 Sodium Level 141 Potassium Level 4.4 Chloride Level 110 Carbon Dioxide Level 26 Anion Gap 9 Blood Urea Nitrogen 11 Creatinine 0.68 Glucose Level 116 Calcium Level 8.6 Phosphorus Level 3.5 Magnesium Level 1.6 L Total Bilirubin 0.0 L Direct Bilirubin 0.00 Indirect Bilirubin 0.0 Aspartate Amino Transf (AST/SGOT) 14 L Alanine Aminotransferase (ALT/SGPT) 24 Alkaline Phosphatase 83 Total Protein 6.0 L Albumin 3.4 Globulin 2.60 Albumin/Globulin Ratio 1.30 Medications Medications Current Medications Acetaminophen (Tylenol Tab) 650 mg Q6H PRN PO PAIN LEVEL 1-3 OR FEVER; Start at 02:00 Docusate Sodium (Colace) 100 mg Q12H PRN PO CONSTIPATION; Start 05/02/17 at 02: 00 Bisacodyl (Dulcolax) 5 mg DAILY PRN PO CONSTIPATION; Start 05/02/17 at 02:00 Fluoxetine HCl (Prozac) 20 mg DAILY PO Last administered on 05/02/17 10:05; Admin Dose 20 MG; Start 05/02/17 at 09:00 Lorazepam (Ativan) 2 mg DAILY PRN PO ANXIETY; Start 05/02/17 at 06:30 Morphine Sulfate (morphine) 4 mg Q4H PRN IV SEVERE PAIN LEVEL 7-10 Last administered on 05/03/17 12:00; Admin Dose 4 MG; Start 05/02/17 at 07:00 Lorazepam (Ativan) 2 mg AM PO Last administered on 05/02/17 10:04; Admin Dose 2 MG; Start 05/02/17 at 09:00 Lorazepam (Ativan) 4 mg HS PO Last administered on 05/02/17 21:05; Admin Dose 4 MG; Start 05/02/17 at 21:00 Famotidine 20 mg 20 mg BID IV Last administered on 05/02/17 21:06; Admin Dose 20 MG; Start 05/02/17 at 21:00 Sodium Chloride (NS) 1,000 ml @ 70 mls/hr [id number] IV Last administered on 05/02 21:06; Admin Dose 70 MLS/HR; Start 05/02/17 at 21:30 Tramadol HCl (Ultram) 50 mg Q6 PO ; Start 05/03/17 at 18:00 Naloxone HCl (Narcan) 0.2 mg Q2M PRN IV RESPIRATORY RATE LESS THAN 8; Start at 09:30 Ondansetron HCl (Zofran Inj) 4 mg Q4H PRN IV NAUSEA; Start 05/03/17 at 09:30 Aspirin 325 mg 325 mg BID PO ; Start 05/04/17 at 09:00 Clindamycin HCl/ Dextrose (Cleocin 600 Mg/ D5W (Pmx)) 50 ml @ 50 mls/hr BID IVPB ; Start 05/03/17 at 14:30 CAL FOSTER MD May 03, 2017 14:27
--- NOTE | 2017-05-03 14:52 | RADRPT ---
PROCEDURE: Fluoroscopic guidance with x-ray images during left hip ORIF with gamma nail. CLINICAL INDICATION: Left hip gamma nail ORIF . TECHNIQUE: None x-ray images were obtained during left hip gamma nail ORIF. COMPARISON: None available FINDINGS: 64 seconds of fluoroscopy time was utilized during pacemaker insertion. 9 x-ray images were obtaine d during the procedure in progress for guidance. Cumulative dose total is 5.29 mGy. The left hip aga in a L is in good position. The femur is in good position and alignment. Procedure was performed by Dr. Baer. IMPRESSION: 1. Fluoroscopic guidance with x-ray images obtained for left hip gamma nail ORIF. RPTAT: XX .Danis Vargas MD, Date Time Electronically viewed and signed by .Danis Vargas MD, MD on 05/03/2017 14:51 .T/
[2017-05-03] MEDS: SOD CHLORIDE 0.9% 1,000 ML IV SCH ×2 (15:07→22:33)
[2017-05-03] MEDS: CLINDAMYCIN 600 MG/D5W (PMX) 50 ML IVPB SCH ×2 (15:09→22:33)
[2017-05-03] MEDS: traMADol 50 MG TAB PO SCH ×2 (18:31→23:55)
[2017-05-03] MEDS: OXYCODONE/ACETAMINOPHEN (5/325) TAB PO PRN (22:41)
[2017-05-04 00:02] VITALS: BP 123/60; PULSE 81; RESP 17
[2017-05-04 04:18] VITALS: BP 98/50; RESP 16
[2017-05-04 04:30] VITALS: BP 122/57; PULSE 78; RESP 17
[2017-05-04] MEDS: traMADol 50 MG TAB PO SCH ×3 (05:37→18:00)
[2017-05-04] MEDS: LEVOTHYROXINE 88 MCG TAB PO SCH (06:37)
[2017-05-04 07:29] VITALS: BP 117/58; RESP 20
[2017-05-04] MEDS: FAMOTIDINE 20 MG INJ IV SCH ×2 (08:52→20:37)
[2017-05-04] MEDS: ASPIRIN (EC) 325 MG TAB PO SCH ×2 (08:52→20:37)
[2017-05-04] MEDS: FLUOXETINE 20 MG CAP PO SCH (08:52)
[2017-05-04] MEDS: LORAZEPAM 1 MG TAB PO SCH ×3 (08:52→20:37)
[2017-05-04] MEDS: CLINDAMYCIN 600 MG/D5W (PMX) 50 ML IVPB SCH ×2 (08:52→20:36)
[2017-05-04] MEDS: OXYCODONE/ACETAMINOPHEN (5/325) TAB PO PRN ×2 (09:00→13:35)
[2017-05-04] MEDS: morphine 4 MG/ML VIAL IV PRN ×3 (10:48→21:39)
--- NOTE | 2017-05-04 16:04 | PN ---
Date/Time of Note Date/Time of Note DATE: 05/04/17 TIME: 16:03 Assessment/Plan VTE Prophylaxis VTE Prophylaxis Intervention: LMWH Lines/Catheters IV Catheter Type (from Nrsg): Saline Lock Urinary Cath still in place: No Assessment/Plan Chief Complaint/Hosp Course 71 yo female with MDD, and generalized anxiety disorder who presents after mechanical fall with hip fracture and wrist fracture Hip fracture: - s/p OR per Dr Henderson - Pain control - Lovenox for DVT ppx - PT/OT Wrist fracture: - Splint placed BLAISE: - Continue home ativan dosing MDD: - Continue home SSRI Dispo likely to [facility] Problems: Subjective 24 Hr Interval Summary Free Text/Dictation Workign with PT Ready for DC to [facility] Exam/Review of Systems Vital Signs Vitals Vital Signs Date Time Temp Pulse Resp B/P Pulse Ox O2 Delivery O2 Flow Rate FiO2 05/04/17 07:29 99.1 88 20 117/58 99 05/04/17 04:30 Room Air 05/03/17 20:15 2.0 Intake and Output 05/03/17 05/03/17 05/04/17 15:00 23:00 07:00 Intake Total 700 ml 1620 ml 1190 ml Output Total 50 ml 300 ml 1500 ml Balance 650 ml 1320 ml -310 ml Results Result Diagram: 05/03/17 0445 05/03/17 0523 Medications Medications Current Medications Acetaminophen (Tylenol Tab) 650 mg Q6H PRN PO PAIN LEVEL 1-3 OR FEVER; Start at 02:00 Docusate Sodium (Colace) 100 mg Q12H PRN PO CONSTIPATION; Start 05/02/17 at 02: 00 Bisacodyl (Dulcolax) 5 mg DAILY PRN PO CONSTIPATION Last administered on 09:00; Admin Dose 5 MG; Start 05/02/17 at 02:00 Fluoxetine HCl (Prozac) 20 mg DAILY PO Last administered on 05/04/17 08:52; Admin Dose 20 MG; Start 05/02/17 at 09:00 Lorazepam (Ativan) 2 mg DAILY PRN PO ANXIETY; Start 05/02/17 at 06:30 Morphine Sulfate (morphine) 4 mg Q4H PRN IV SEVERE PAIN LEVEL 7-10 Last administered on 05/04/17 10:48; Admin Dose 4 MG; Start 05/02/17 at 07:00 Lorazepam (Ativan) 2 mg AM PO Last administered on 05/04/17 08:52; Admin Dose 2 MG; Start 05/02/17 at 09:00 Lorazepam (Ativan) 4 mg HS PO Last administered on 05/03/17 22:34; Admin Dose 4 MG; Start 05/02/17 at 21:00 Famotidine 20 mg 20 mg BID IV Last administered on 05/04/17 08:52; Admin Dose 20 MG; Start 05/02/17 at 21:00 Sodium Chloride (NS) 1,000 ml @ 70 mls/hr [id number] IV Last administered on 05/03 22:33; Admin Dose 70 MLS/HR; Start 05/02/17 at 21:30 Tramadol HCl (Ultram) 50 mg Q6 PO Last administered on 05/03/17 18:31; Admin Dose 50 MG; Start 05/03/17 at 18:00 Naloxone HCl (Narcan) 0.2 mg Q2M PRN IV RESPIRATORY RATE LESS THAN 8; Start at 09:30 Ondansetron HCl (Zofran Inj) 4 mg Q4H PRN IV NAUSEA; Start 05/03/17 at 09:30 Aspirin 325 mg 325 mg BID PO Last administered on 05/04/17 08:52; Admin Dose 325 MG; Start 05/04/17 at 09:00 Clindamycin HCl/ Dextrose (Cleocin 600 Mg/ D5W (Pmx)) 50 ml @ 50 mls/hr BID IVPB Last administered on 05/04/17 08:52; Admin Dose 50 MLS/HR; Start at 14:30 Oxycodone/ Acetaminophen (Percocet (5/ 325)) 1 tab Q4H PRN PO PAIN Last administered on 05/04/17 13:35; Admin Dose 1 TAB; Start 05/03/17 at 14:30 CAL FOSTER MD May 04, 2017 16:04
[2017-05-04] MEDS: SOD CHLORIDE 0.9% 1,000 ML IV SCH (16:24)
[2017-05-04 20:03] VITALS: BP 121/58; RESP 16
[2017-05-05] MEDS: morphine 4 MG/ML VIAL IV PRN ×3 (01:41→21:15)
[2017-05-05 02:14] VITALS: BP 116/53; RESP 16
[2017-05-05] MEDS: traMADol 50 MG TAB PO SCH ×4 (06:00→17:41)
[2017-05-05] MEDS: LEVOTHYROXINE 88 MCG TAB PO SCH (06:37)
[2017-05-05] MEDS: OXYCODONE/ACETAMINOPHEN (5/325) TAB PO PRN ×3 (06:42→18:12)
[2017-05-05] MEDS: SOD CHLORIDE 0.9% 1,000 ML IV SCH ×2 (06:42→21:00)
[2017-05-05 08:07] VITALS: BP 134/58; RESP 20
[2017-05-05] MEDS: FAMOTIDINE 20 MG INJ IV SCH (08:57)
[2017-05-05] MEDS: FLUOXETINE 20 MG CAP PO SCH (08:57)
[2017-05-05] MEDS: CLINDAMYCIN 600 MG/D5W (PMX) 50 ML IVPB SCH ×2 (08:57→20:57)
[2017-05-05] MEDS: ASPIRIN (EC) 325 MG TAB PO SCH ×2 (08:58→20:58)
[2017-05-05] MEDS: LORAZEPAM 1 MG TAB PO SCH ×3 (08:58→20:57)
[2017-05-05 10:49] LABS: ADD UMIC YES; UR ASCORBIC ACID NEGATIVE (NEGATIVE); UR BACTERIA MANY /HPF (NONE SEEN); UR BILIRUBIN (Dip) NEGATIVE (NEGATIVE); UR BLOOD (Dip) NEGATIVE (NEGATIVE); UR CLARITY CLOUDY (CLEAR); UR COLOR AMBER (YELLOW); UR GLUCOSE (Dip) NEGATIVE (NEGATIVE); UR KETONES (Dip) TRACE mg/dL (NEGATIVE); UR LEUKOCYTE ESTERASE (Dip) 2+ Leu/ul (NEGATIVE); UR MUCUS MANY /HPF (NONE SEEN); UR NITRITE (Dip) POSITIVE (NEGATIVE); UR NONSQUAMOUS EPITHELIAL CELL 2 /HPF (NONE SEEN); UR RBC 5 /HPF (0-5); UR SPECIFIC GRAVITY (Dip) 1.019 (1.003-1.030); UR SQUAMOUS EPITHELIAL CELL FEW /HPF (FEW); UR TOTAL PROTEIN (Dip) 1+ mg/dl (NEGATIVE); UR UROBILINOGEN (Dip) 2+ mg/dL (NEGATIVE)
--- NOTE | 2017-05-05 14:22 | PN ---
Date/Time of Note Date/Time of Note DATE: 05/05/17 TIME: 14:20 Assessment/Plan VTE Prophylaxis VTE Prophylaxis Intervention: LMWH Lines/Catheters IV Catheter Type (from Nrsg): Saline Lock Assessment/Plan Chief Complaint/Hosp Course 71 yo female with MDD, and generalized anxiety disorder who presents after mechanical fall with hip fracture and wrist fracture Hip fracture: - s/p OR per Dr Henderson - Pain control - Lovenox for DVT ppx - PT/OT Wrist fracture: - Splint placed BLAISE: - Continue home ativan dosing MDD: - Continue home SSRI Dispo likely to [facility] Problems: Subjective 24 Hr Interval Summary Constitutional: no complaints Exam/Review of Systems Vital Signs Vitals Vital Signs Date Time Temp Pulse Resp B/P Pulse Ox O2 Delivery O2 Flow Rate FiO2 05/05/17 08:07 98.5 86 20 134/58 96 05/04/17 04:30 Room Air 05/03/17 20:15 2.0 Intake and Output 05/04/17 05/04/17 05/05/17 15:00 23:00 07:00 Intake Total 330 ml 1490 ml 980 ml Output Total 700 ml 1600 ml Balance 330 ml 790 ml -620 ml Exam Constitutional: alert Respiratory: clear to auscultation Cardiovascular: regular rate and rhythm Gastrointestinal: soft, No distended Musculoskeletal: nl extremities to inspection Results Result Diagram: 05/03/17 0445 05/03/17 0523 Results 24 hrs Laboratory Tests Test 05/05/17 06:30 Urine Color SHIKHA Urine Clarity CLOUDY A Urine pH 5.0 Urine Specific [place] 1.019 Urine Ketones TRACE A Urine Nitrite POSITIVE A Urine Bilirubin NEGATIVE Urine Urobilinogen 2+ H Urine Leukocyte Esterase 2+ H Urine Microscopic RBC 5 Urine Microscopic WBC 135 H Urine Squamous Epithelial Cells FEW Urine Bacteria MANY A Urine Mucus MANY A Urine Hemoglobin NEGATIVE Urine Glucose NEGATIVE Urine Total Protein 1+ H Medications Medications Current Medications Acetaminophen (Tylenol Tab) 650 mg Q6H PRN PO PAIN LEVEL 1-3 OR FEVER; Start at 02:00 Docusate Sodium (Colace) 100 mg Q12H PRN PO CONSTIPATION; Start 05/02/17 at 02: 00 Bisacodyl (Dulcolax) 5 mg DAILY PRN PO CONSTIPATION Last administered on t 09:00; Admin Dose 5 MG; Start 05/02/17 at 02:00 Fluoxetine HCl (Prozac) 20 mg DAILY PO Last administered on 05/05/17 08:57; Admin Dose 20 MG; Start 05/02/17 at 09:00 Lorazepam (Ativan) 2 mg DAILY PRN PO ANXIETY; Start 05/02/17 at 06:30 Morphine Sulfate (morphine) 4 mg Q4H PRN IV SEVERE PAIN LEVEL 7-10 Last administered on 05/05/17 09:29; Admin Dose 4 MG; Start 05/02/17 at 07:00 Lorazepam (Ativan) 2 mg AM PO Last administered on 05/05/17 08:58; Admin Dose 2 MG; Start 05/02/17 at 09:00 Lorazepam (Ativan) 4 mg HS PO Last administered on 05/04/17 20:37; Admin Dose 4 MG; Start 05/02/17 at 21:00 Famotidine 20 mg 20 mg BID IV Last administered on 05/05/17 08:57; Admin Dose 20 MG; Start 05/02/17 at 21:00 Sodium Chloride (NS) 1,000 ml @ 70 mls/hr [id number] IV Last administered on 05/03 22:33; Admin Dose 70 MLS/HR; Start 05/02/17 at 21:30 Tramadol HCl (Ultram) 50 mg Q6 PO Last administered on 05/03/17 18:31; Admin Dose 50 MG; Start 05/03/17 at 18:00 Naloxone HCl (Narcan) 0.2 mg Q2M PRN IV RESPIRATORY RATE LESS THAN 8; Start at 09:30 Ondansetron HCl (Zofran Inj) 4 mg Q4H PRN IV NAUSEA; Start 05/03/17 at 09:30 Aspirin 325 mg 325 mg BID PO Last administered on 05/05/17 08:58; Admin Dose 325 MG; Start 05/04/17 at 09:00 Clindamycin HCl/ Dextrose (Cleocin 600 Mg/ D5W (Pmx)) 50 ml @ 50 mls/hr BID IVPB Last administered on 05/05/17 08:57; Admin Dose 50 MLS/HR; Start at 14:30 Oxycodone/ Acetaminophen (Percocet (5/ 325)) 1 tab Q4H PRN PO PAIN Last administered on 05/05/17t 12:55; Admin Dose 1 TAB; Start 05/03/17 at 14:30 GIRISH DASILVA May 05, 2017 14:22
[2017-05-05 19:54] VITALS: BP 102/51; RESP 18
[2017-05-05] MEDS: FAMOTIDINE 20 MG TAB PO SCH (20:57)
[2017-05-06 01:23] VITALS: BP 120/55; RESP 18
[2017-05-06] MEDS: morphine 4 MG/ML VIAL IV PRN ×4 (04:56→19:36)
[2017-05-06 05:25] LABS: BASOPHILS % 0.4 % (0.0-2.0); EOSINOPHILS # 0.2 10^3/ul (0.0-0.5); EOSINOPHILS % 4.2 % (0.0-7.0); HEMOGLOBIN 8.7 g/dl (12.0-16.0); LYMPHOCYTES # 1.5 10^3/ul (0.8-2.9); LYMPHOCYTES % 27.5 % (15.0-51.0); MEAN CORPUSCULAR HEMOGLOBIN 29.5 pg (29.0-33.0); MEAN CORPUSCULAR HGB CONC 32.2 g/dl (32.0-37.0); MEAN CORPUSCULAR VOLUME 91.5 fl (82.0-101.0); MEAN PLATELET VOLUME 9.8 fl (7.4-10.4); MONOCYTE # 0.4 10^3/ul (0.3-0.9); MONOCYTES % 6.8 % (0.0-11.0); NEUTROPHIL # 3.3 10^3/ul (1.6-7.5); NEUTROPHILS % 60.9 % (39.0-77.0); PLATELET COUNT 250 10^3/UL (140-415); RED BLOOD COUNT 2.95 10^6/ul (4.20-5.40); RED CELL DISTRIBUTION WIDTH 13.2 % (11.5-14.5); WHITE BLOOD COUNT 5.4 10^3/ul (4.8-10.8)
[2017-05-06 05:44] LABS: CREATININE 0.68 mg/dl (0.44-1.00); MAGNESIUM 1.7 mg/dl (1.7-2.5); POTASSIUM 3.8 mmol/L (3.5-5.1)
[2017-05-06] MEDS: traMADol 50 MG TAB PO SCH ×4 (06:00→17:31)
[2017-05-06] MEDS: LEVOTHYROXINE 88 MCG TAB PO SCH (06:59)
[2017-05-06 08:16] VITALS: BP 134/61; RESP 16
[2017-05-06] MEDS: FAMOTIDINE 20 MG TAB PO SCH (08:40)
[2017-05-06] MEDS: FLUOXETINE 20 MG CAP PO SCH (08:40)
[2017-05-06] MEDS: ASPIRIN (EC) 325 MG TAB PO SCH (08:40)
[2017-05-06] MEDS: CLINDAMYCIN 600 MG/D5W (PMX) 50 ML IVPB SCH (08:40)
[2017-05-06] MEDS: LORAZEPAM 1 MG TAB PO SCH ×2 (08:40→13:09)
[2017-05-06] MEDS: SOD CHLORIDE 0.9% 1,000 ML IV SCH (11:18)
[2017-05-06] MEDS: OXYCODONE/ACETAMINOPHEN (5/325) TAB PO PRN ×2 (11:36→16:46)
[2017-05-06] MEDS ORDERED: CEFTRIAXONE 1 GM/50 ML (PMX) 50 ML IVPB ONE (12:30)
[2017-05-06] MEDS ORDERED: OXYC-438 PO (12:30)
[2017-05-06] MEDS ORDERED: CIPR500T4 PO (12:30)
--- NOTE | 2017-05-06 15:19 | DS ---
Date/Time of Note Date/Time of Note DATE: 05/06/17 TIME: 15:08 Discharge Summary Admission/Discharge Info Admit Date/Time May 02, 2017 at 00:00 Discharge Date/Time May 06, 2017 Discharge Diagnosis 1. Mechanical fall with hip and wrist fracture Status post Left hip intramedullary nailing and left distal radius closed reduction with application of splint Lovenox for DVT ppx 2. PTSD - Continue home ativan dosing 3. MDD: - Continue home SSRI 4. UTI Rocephin IV and DC with Cipro p.o. Patient Condition: Good Hospital Course Patient is a 71-year-old female with a past medical history of depression, anxiety, hypothyroidism, hyperlipidemia who is presenting after a mechanical fall. Patient was found to have a left hip fracture as well as left distal radius fracture. Patient was seen by orthopedics and underwent left hip intramedullary nailing and left distal radius closed reduction with application of splint. Patient had poor tolerance to physical therapy secondary to pain, patient was unable to ambulate and was felt to require SNF placement. Of note a UA and urine culture did show a UTI and patient was started on antibiotics in house. On the day of discharge patient's vitals, labs and physical exam are stable, she no further acute complaints and questions are answered. Home Meds Active Scripts Ciprofloxacin Hcl* (Ciprofloxacin Hcl*) 500 Mg Tablet, 500 MG PO BID for 6 Days , TAB Prov:GIRISH DASILVA 05/06/17 Oxycodone HCl/Acetaminophen (Oxycodone-Acetaminophen 5-325) 1 Each Tablet, 1 TAB PO Q4H Y for PAIN, #30 TAB Prov:GIRISH DASILVA 05/06/17 Reported Medications Fluoxetine Hcl* (Fluoxetine Hcl*) 20 Mg Capsule, 20 MG PO DAILY, CAP 05/01/17 Esomeprazole Mag Trihydrate (Nexium) 20 Mg Capsule.dr, 20 MG PO BID, #30 CAP 05/01/17 Ibuprofen* (Ibuprofen*) 200 Mg Capsule, 200 MG PO Q6 for PAIN, CAP 05/01/17 Gemfibrozil* (Gemfibrozil*) 600 Mg Tablet, 600 MG PO BID, TAB 05/01/17 Levothyroxine Sodium* (Levothyroxine Sodium*) 88 Mcg Tablet, 88 MCG PO BEFORE BREAKFAST, #30 TAB 05/01/17 Lorazepam* (Ativan*) 2 Mg Tablet, 2 MG PO DAILY Y for ANXIETY, #30 TAB 05/01/17 Aspirin* (Aspirin* EC) 81 Mg Tablet., 81 MG PO DAILY, TAB 05/01/17 Follow-up Plan Follow-up with physicians at the shelter facility Primary Care Provider Not On Staff Doctor Time spent on discharge: > 30 minutes GIRISH DASILVA May 06, 2017 15:19
[2017-05-06 17:10] VITALS: BP 114/53; RESP 18
[2017-05-06 19:45] VITALS: BP 115/79; PULSE 78; RESP 17
== END 2017-05-06 19:50 | DRG 481 ==
LOC: E/R 21:39 → MS1 05-02
PROVIDERS: ADMIT Family Medicine; ATTEND Family Medicine
PROC: 0PSJXZZ Reposition Left Radius, External Approach (ICD-10-PCS; 2017-05-03)
PROC: 0QS734Z Reposition Left Upper Femur with Internal Fixation Device, Percutaneous Approach (ICD-10-PCS; principal; 2017-05-03 07:30)
DX: S72.142A Displaced intertrochanteric fracture of left femur, initial encounter for closed fracture (principal); S52.552A Other extraarticular fracture of lower end of left radius, initial encounter for closed fracture; I10 Essential (primary) hypertension; E78.5 Hyperlipidemia, unspecified; E03.9 Hypothyroidism, unspecified; W18.30XA Fall on same level, unspecified, initial encounter; F41.9 Anxiety disorder, unspecified
CPT/HCPCS: 71010; 72170; 73200; 73510; 73530; 73700; 80048; 80053; 81001; 83735; 84100; 85025; 85610; 85730; 86850; 86900; 86901; 87086; 93005; 96374; 97110; 97116; 97163; 97530; C9113; J0696; J1200; J1650; J2175; J2270; J2405; J3010; J7030; J7999

== ENCOUNTER 2018-07-29 18:26 | Inpatient (IN) | END 2018-07-31 20:45 | disposition home health service (06) | DRG 69 ==